=== PATIENT | female | born 1950 | race Caucasian/White ===

== ENCOUNTER 2021-03-28 14:40 | Inpatient (IN) | payer MEDICARE, MEDICAID ==
[~2021-03-28] VITALS: Ht 165.1 cm; Wt 81.1 kg
[2021-03-28 18:00] VITALS: BP 169/71
--- NOTE | 2021-03-28 18:30 | NUR ---
Patient in room PCU 3016. I have received report from Shawanda MUNOZ and had the opportunity to ask questions and assume patient care.
[2021-03-28] MEDS ORDERED: mag hydrox/Alum hydrox/simeth 30ml oral suspension PO PRN (20:00)
[2021-03-28] MEDS ORDERED: levoFLOXACIN-Levaquin 750MG/D5 150 ML IV ONE (20:00)
[2021-03-28] MEDS ORDERED: diphenhydrAMINE 50 mg/ml inj IV PRN (20:00)
[2021-03-28] MEDS ORDERED: acetaminophen 325mg tablet PO PRN ×2 (20:00)
[2021-03-28] MEDS ORDERED: acetaminophen 650mg rectal suppository RC PRN (20:00)
[2021-03-28] MEDS ORDERED: diphenhydrAMINE 25mg capsule PO PRN (20:00)
[2021-03-28] MEDS ORDERED: ondansetron 4mg rapidly disintigrating tab PO PRN (20:00)
[2021-03-28] MEDS: normal saline 1000ml 1,000 ML IV SCH (20:00)
[2021-03-28] MEDS ORDERED: morphine 2 MG/ML inj. syringe IV PRN ×2 (20:00)
[2021-03-28] MEDS ORDERED: bisacodyl 10mg suppository rectal RC PRN (20:00)
[2021-03-28] MEDS ORDERED: magnesium hydroxide 30ml (MOM) UD suspension PO PRN (20:00)
[2021-03-28] MEDS ORDERED: HYDROcodone/acetaminophen 5mg/325mg tablet PO PRN (20:00)
[2021-03-28] MEDS ORDERED: labetalol 20mg/4ml (5mg/ml) syringe IV PRN (20:05)
[2021-03-28 20:55] LABS: PARTIAL THROMBOPLASTIN TIME 26 SECONDS (22-32)
--- NOTE | 2021-03-28 21:00 | NUR ---
Troponin at 3917. I called and informed Dr. Bey. He prescribed aspirin 325mg 1 tab once and aspirin 81 mg once daily with initial dose at 0800 03/29/21.
[2021-03-28 21:06] LABS: CREATINE KINASE 64 U/L (26-192); MAGNESIUM 2.8 MG/DL (1.5-2.4); PHOSPHORUS 5.6 MG/DL (2.3-4.5)
[2021-03-28] MEDS ORDERED: HYDR-4070 PO (21:08)
[2021-03-28] MEDS ORDERED: FURO80TA3 PO (21:14)
[2021-03-28] MEDS ORDERED: TRAZ-251 PO (21:14)
[2021-03-28] MEDS ORDERED: CLON0.1T2 PO (21:14)
[2021-03-28] MEDS ORDERED: LACT10SO3 PO (21:14)
[2021-03-28] MEDS ORDERED: ONDA-103 PO (21:14)
[2021-03-28] MEDS ORDERED: SERT-434 PO (21:14)
[2021-03-28] MEDS ORDERED: AMLO2.5T5 PO (21:14)
[2021-03-28] MEDS ORDERED: METO-411 PO (21:14)
[2021-03-28] MEDS ORDERED: LISI20TA28 PO (21:14)
[2021-03-28] MEDS ORDERED: ATOR20TA66 PO (21:14)
[2021-03-28 21:25] LABS: BASOPHILS % (AUTO) 0.4 % (0-1); EOSINOPHILS # (AUTO) 0.1 X10'3 (0-0.9); EOSINOPHILS % (AUTO) 1.4 % (0-6); HEMATOCRIT 35.6 % (35.0-45.0); HEMOGLOBIN 11.5 g/dl (12.0-16.0); LYMPHOCYTES % (AUTO) 11.3 % (21-51); MEAN CORPUSCULAR HEMOGLOBIN 31.3 PG (27.0-31.0); MEAN CORPUSCULAR HGB CONC 32.4 g/dL (33.0-36.5); MEAN CORPUSCULAR VOLUME 96.8 FL (78-98); MEAN PLATELET VOLUME 7.5 FL (7.4-10.4); MONOCYTES # (AUTO) 0.7 X10'3 (0-0.9); MONOCYTES % (AUTO) 7.7 % (2-12); NEUTROPHILS # (AUTO) 7.3 X10'3 (1.8-7.7); NEUTROPHILS % (AUTO) 79.2 % (42-75); PLATELET COUNT 474 X10'3 (140-440); RED BLOOD COUNT 3.68 X10'6 (4.20-5.60); RED CELL DISTRIBUTION WIDTH 17.4 % (11.5-14.5); WHITE BLOOD COUNT 9.3 X10'3 (4.5-11.0)
[2021-03-28] MEDS ORDERED: aspirin 325mg tablet PO ONE (21:45)
[2021-03-28 22:00] VITALS: BP 165/85
[2021-03-28] MEDS ORDERED: non-formulary drug (Ondansetron HCl 1 TAB) PO PRN (22:05)
[2021-03-28] MEDS ORDERED: lactulose 20gm/30ml cup PO PRN (22:05)
[2021-03-28] MEDS: HYDROcodone/acetaminophen 10/325mg tab PO PRN (22:24)
[2021-03-28] MEDS: docusate sod 100mg capsule PO SCH (22:29)
[2021-03-28] MEDS: ondansetron/PF 4mg/2ml inj IV PRN (22:33)
[2021-03-28] MEDS: heparin, porcine 5000 units/ml vial SQ SCH (22:33)
[2021-03-29 02:00] VITALS: BP 171/84
[2021-03-29] MEDS: HYDROcodone/acetaminophen 10/325mg tab PO PRN (05:47)
[2021-03-29] MEDS: normal saline 1000ml 1,000 ML IV SCH ×2 (06:00→16:00)
--- NOTE | 2021-03-29 06:41 | NUR ---
Patient in room PCU 3016. I have received report from Darcy MUNOZ and had the opportunity to ask questions and assume patient care.
[2021-03-29 06:42] LABS: BASOPHILS % (AUTO) 0.5 % (0-1); EOSINOPHILS # (AUTO) 0.2 X10'3 (0-0.9); EOSINOPHILS % (AUTO) 2.9 % (0-6); HEMATOCRIT 38.7 % (35.0-45.0); HEMOGLOBIN 12.3 g/dl (12.0-16.0); LYMPHOCYTES # (AUTO) 0.6 X10'3 (1.1-4.8); LYMPHOCYTES % (AUTO) 7.6 % (21-51); MEAN CORPUSCULAR HEMOGLOBIN 30.9 PG (27.0-31.0); MEAN CORPUSCULAR HGB CONC 31.7 g/dL (33.0-36.5); MEAN CORPUSCULAR VOLUME 97.5 FL (78-98); MEAN PLATELET VOLUME 7.5 FL (7.4-10.4); MONOCYTES # (AUTO) 0.6 X10'3 (0-0.9); MONOCYTES % (AUTO) 7.5 % (2-12); NEUTROPHILS # (AUTO) 6.2 X10'3 (1.8-7.7); NEUTROPHILS % (AUTO) 81.5 % (42-75); PLATELET COUNT 444 X10'3 (140-440); RED BLOOD COUNT 3.97 X10'6 (4.20-5.60); RED CELL DISTRIBUTION WIDTH 17.6 % (11.5-14.5); WHITE BLOOD COUNT 7.6 X10'3 (4.5-11.0)
--- NOTE | 2021-03-29 06:42 | NUR ---
Problems reprioritized. Patient report given, questions answered & plan of care reviewed with Brissa MUNOZ.
[2021-03-29 06:52] LABS: ALBUMIN 2.9 G/DL (3.4-5.0); ALBUMIN/GLOBULIN RATIO 0.8 (1.1-1.5); ALKALINE PHOSPHATASE 88 IU/L (46-116); ANION GAP 14 (8-16); ASPARTATE AMINO TRANSFERASE 27 U/L (10-37); BILIRUBIN,TOTAL 0.4 MG/DL (0.1-1.0); BLOOD UREA NITROGEN 54 MG/DL (7-18); BUN/CREATININE RATIO 9.9 (6.6-38.0); CALCIUM 8.2 MG/DL (8.5-10.1); CHLORIDE 98 MMOL/L (99-107); CREATININE 5.45 MG/DL (0.40-0.90); GLUCOSE 79 MG/DL (70-104); POTASSIUM 4.5 MMOL/L (3.5-5.1); SODIUM 138 MMOL/L (135-145); TOTAL PROTEIN 6.7 G/DL (6.4-8.2); eGFR 8 ML/MIN
[2021-03-29 06:57] LABS: ALANINE AMINOTRANSFERASE < 6 U/L (12-78)
--- NOTE | 2021-03-29 07:04 | NUR ---
Critical results Trop 3359 down from 3917. Notified Charge nurse Donnie, expected findings.
[2021-03-29 07:32] VITALS: BP 193/92
[2021-03-29] MEDS: metoprolol succinate 25mg (24-HOUR) SR. Tablet PO SCH (07:43)
[2021-03-29] MEDS: pantoprazole 40 MG vial IV SCH (07:43)
[2021-03-29] MEDS: sertraline 50mg tablet PO SCH (07:44)
[2021-03-29] MEDS: amLODIPine 2.5mg tablet PO SCH (07:44)
[2021-03-29] MEDS: cloNIDine 0.1 mg tablet PO SCH ×2 (07:44→19:25)
[2021-03-29] MEDS: aspirin 81mg tab.chew PO SCH (07:44)
[2021-03-29] MEDS: atorvastatin 20mg tablet PO SCH (07:45)
[2021-03-29] MEDS: docusate sod 100mg capsule PO SCH ×2 (07:45→19:25)
[2021-03-29] MEDS: lisinopril 20mg tablet PO SCH ×2 (07:45→19:25)
[2021-03-29] MEDS: heparin, porcine 5000 units/ml vial SQ SCH ×2 (07:46→19:26)
[2021-03-29] MEDS: HYDROmorphone inj. 0.5 MG/0.5 ML DISP.SYRIN IV PRN ×3 (07:58→21:43)
[2021-03-29] MEDS ORDERED: zolpidem 5mg tablet PO PRN (09:40)
[2021-03-29] MEDS ORDERED: LORazepam 0.5 MG tablet PO PRN (09:40)
[2021-03-29] MEDS: ondansetron/PF 4mg/2ml inj IV PRN ×2 (10:17→17:02)
--- NOTE | 2021-03-29 11:46 | NUR ---
PAGER ID: [phone] MESSAGE: [id number] Did you see that her report is back on the KUB? I think NG needs to be advanced... ? Brissa [phone]
--- NOTE | 2021-03-29 11:55 | NUR ---
Problems reprioritized. Patient report given, questions answered & plan of care reviewed with Brissa MUNOZ.
--- NOTE | 2021-03-29 13:29 | NUR ---
Advanced NG per verbal order from Dr. Verduzco. Resistance was felt but was able to advance. Patient tolerated well but had pain, stopped advancement when patient asked. Out put was increased.
[2021-03-29 13:31] VITALS: BP 188/98
[2021-03-29] MEDS ORDERED: normal saline 1000ml 250 ML IV PRN (14:05)
[2021-03-29] MEDS ORDERED: heparin 1,000unit/ml 10ml vial 10 ML IV ONE (14:05)
[2021-03-29] MEDS ORDERED: heparin 1,000 units/ml 10ml inj HE ONE ×2 (14:10)
[2021-03-29 15:41] VITALS: BP 202/103
--- NOTE | 2021-03-29 15:47 | NUR ---
PAGER ID: [phone] MESSAGE: [id number] Black Pringle BP currently is 202/103, HR 82, she has labetalol 20mg prn. Q15 min. Brissa [phone]
--- NOTE | 2021-03-29 15:52 | NUR ---
Updated patients SBAR, permission received to be able to talk to son Silvino Coleman concerning patients medical information.
--- NOTE | 2021-03-29 16:29 | NUR ---
Dialysis nurse in to HD patient, requesting hydralizine not be given, nurse states that she will bring BP down with HD.
[2021-03-29 18:00] VITALS: BP 175/110
--- NOTE | 2021-03-29 18:17 | NUR ---
Problems reprioritized. Patient report given, questions answered & plan of care reviewed with Darcy MUNOZ.
--- NOTE | 2021-03-29 18:30 | NUR ---
Patient in room PCU 3016. I have received report from Brissa MUNOZ and had the opportunity to ask questions and assume patient care.
[2021-03-29] MEDS: hydrALAZINE 20mg/ml inj. IV PRN (19:26)
[2021-03-29] MEDS ORDERED: traZODone 50mg tablet PO SCH (21:00)
[2021-03-29 22:00] VITALS: BP 170/99
[2021-03-30] VITALS (21 sets, daily range): BP systolic 122–179; BP diastolic 62–103
[2021-03-30] MEDS: normal saline 1000ml 1,000 ML IV SCH ×2 (02:00→10:59)
[2021-03-30] MEDS: HYDROmorphone inj. 0.5 MG/0.5 ML DISP.SYRIN IV PRN (03:22)
--- NOTE | 2021-03-30 06:00 | NUR ---
Patient in room PCU 3016. I have received report from ALEXANDER Crouch and had the opportunity to ask questions and assume patient care.
--- NOTE | 2021-03-30 06:30 | NUR ---
Patient in room PCU 3016. I have received report from Darcy Patino RN and had the opportunity to ask questions and assume patient care. Pt sitting in bed, semi fowlers, with HOB at 45 degrees per preference. NG hooked up to low intermediate suction: 700 ML brown secretions present in suction container. container changed. pt verbal and in agreement with daily goal to have BM. Per pt, nothing works but enemas. Safety education completed. safety measures in place. Per Darcy Schaefer, Blood cultures called in to her at 0540 and she is notifying Dr. Johnson NOC shift hospitalist. no s/sx acute distress at this time. VS stable.
--- NOTE | 2021-03-30 06:34 | NUR ---
Pt.'s blood culture resulted to gram negative rods. I called and informed Dr. Bey and he prescribed Levaquin 250mg q48H.
--- NOTE | 2021-03-30 06:36 | NUR ---
Problems reprioritized. Patient report given, questions answered & plan of care reviewed with Willa MUNOZ.
[2021-03-30] MEDS: pantoprazole 40 MG vial IV SCH (07:29)
[2021-03-30] MEDS: cloNIDine 0.1 mg tablet PO SCH (07:51)
[2021-03-30] MEDS: atorvastatin 20mg tablet PO SCH ×2 (07:51→08:00)
[2021-03-30] MEDS: hydrALAZINE 25 MG tablet PO SCH ×2 (07:51→08:00)
[2021-03-30] MEDS: docusate sod 100mg capsule PO SCH ×2 (07:51→08:00)
[2021-03-30] MEDS: amLODIPine 2.5mg tablet PO SCH ×2 (07:52→08:00)
[2021-03-30] MEDS: metoprolol succinate 25mg (24-HOUR) SR. Tablet PO SCH ×2 (07:52→08:00)
[2021-03-30] MEDS: lisinopril 20mg tablet PO SCH (07:53)
[2021-03-30] MEDS: sertraline 50mg tablet PO SCH ×2 (07:54→08:00)
[2021-03-30] MEDS: heparin, porcine 5000 units/ml vial SQ SCH ×2 (07:56→20:00)
[2021-03-30] MEDS: HYDROcodone/acetaminophen 10/325mg tab PO PRN (07:59)
[2021-03-30] MEDS ORDERED: levoFLOXACIN-Levaquin 250mg/D5 50 ML IV SCH (08:00)
[2021-03-30 08:04] LABS: BASOPHILS % (AUTO) 0.4 % (0-1); EOSINOPHILS % (AUTO) 0.2 % (0-6); HEMATOCRIT 38.9 % (35.0-45.0); HEMOGLOBIN 12.2 g/dl (12.0-16.0); LYMPHOCYTES # (AUTO) 0.5 X10'3 (1.1-4.8); LYMPHOCYTES % (AUTO) 4.5 % (21-51); MEAN CORPUSCULAR HEMOGLOBIN 30.6 PG (27.0-31.0); MEAN CORPUSCULAR HGB CONC 31.4 g/dL (33.0-36.5); MEAN CORPUSCULAR VOLUME 97.4 FL (78-98); MEAN PLATELET VOLUME 7.3 FL (7.4-10.4); MONOCYTES # (AUTO) 0.8 X10'3 (0-0.9); MONOCYTES % (AUTO) 7.7 % (2-12); NEUTROPHILS # (AUTO) 9.3 X10'3 (1.8-7.7); NEUTROPHILS % (AUTO) 87.2 % (42-75); PLATELET COUNT 481 X10'3 (140-440); RED BLOOD COUNT 3.99 X10'6 (4.20-5.60); RED CELL DISTRIBUTION WIDTH 17.2 % (11.5-14.5); WHITE BLOOD COUNT 10.7 X10'3 (4.5-11.0)
[2021-03-30] MEDS: aspirin 81mg tab.chew PO SCH (08:30)
--- NOTE | 2021-03-30 09:07 | NUR ---
Student Medication Administration: For this medication-pass time frame, all medication were reviewed, dispensed, administered and documented per hospital policy by Shilpa nursing coordinator.
--- NOTE | 2021-03-30 09:12 | NUR ---
Student documentation: I have reviewed and agree with all interventions, assessments performed and documented by Shilpa, acute care nursing assistant.
[2021-03-30 09:16] LABS: ALANINE AMINOTRANSFERASE < 6 U/L (12-78); ALBUMIN 2.6 G/DL (3.4-5.0); ALBUMIN/GLOBULIN RATIO 0.7 (1.1-1.5); ALKALINE PHOSPHATASE 97 IU/L (46-116); ANION GAP 19 (8-16); ASPARTATE AMINO TRANSFERASE 25 U/L (10-37); BILIRUBIN,TOTAL 0.6 MG/DL (0.1-1.0); BLOOD UREA NITROGEN 38 MG/DL (7-18); BUN/CREATININE RATIO 10.7 (6.6-38.0); CALCIUM 8.2 MG/DL (8.5-10.1); CHLORIDE 99 MMOL/L (99-107); CREATININE 3.56 MG/DL (0.40-0.90); GLUCOSE 71 MG/DL (70-104); POTASSIUM 4.7 MMOL/L (3.5-5.1); SODIUM 141 MMOL/L (135-145); TOTAL CARBON DIOXIDE 23.1 MMOL/L (24-32); TOTAL PROTEIN 6.2 G/DL (6.4-8.2); eGFR 13 ML/MIN
[2021-03-30] MEDS ORDERED: famotidine/PF 10 mg/ml inj IV ONE (10:35)
[2021-03-30] MEDS: LORazepam 2 mg/ml vial IV PRN (10:50)
[2021-03-30] MEDS: labetalol 20mg/4ml (5mg/ml) syringe IV PRN (10:50)
[2021-03-30 12:13] LABS: PRE OP PARTIAL THROMB. TIME 32 SECONDS (22-32)
--- NOTE | 2021-03-30 13:06 | NUR ---
Problems reprioritized. Patient report given, questions answered & plan of care reviewed with ALEXANDER Odonnell.
--- NOTE | 2021-03-30 13:18 | NUR ---
Pt to surgery. Report called to Paradise in recovery. notified Paradise of completed checklist prior to surgery. communicated that blood sugar just checked: 65. Per Paradise she will communicate with anesthesia and tx blood sugar. pt left alert and oriented, without SOB or acute distress.
[2021-03-30] MEDS ORDERED: LIDOcaine 1% 30ml preserv. free vial ONE (13:21)
[2021-03-30] MEDS ORDERED: BUPIVAcaine/PF 2.5mg/ml (0.25%) 10ml vial ONE (13:21)
[2021-03-30] MEDS ORDERED: BUPIVACAINE liposomal/PF 13.3 MG/ML vial IM ONE ×2 (13:21→15:06)
[2021-03-30] MEDS ORDERED: BUPIVAcaine/PF 2.5 mg/ml (0.25%) 30ml vial ONE (13:21)
[2021-03-30] MEDS ORDERED: dexmedetomidine 200mcg/2ml inj. IV ONE (13:40)
[2021-03-30] MEDS ORDERED: enalaprilat dihydrate 2.5mg/2ml vial IV ONE (13:40)
[2021-03-30] MEDS ORDERED: dexamethasone sod phosphate 10mg/ml inj ONE (13:40)
[2021-03-30] MEDS ORDERED: sevoflurane 250ml liquid IH ONE (13:40)
[2021-03-30] MEDS ORDERED: midazolam 1 mg/ML 2ml injection ONE (13:41)
[2021-03-30] MEDS ORDERED: fentaNYL/PF 50MCG/1 ML 2ML syringe ONE ×2 (13:41→14:34)
[2021-03-30] MEDS ORDERED: rocuronium 10mg/ml inj IV ONE (13:42)
[2021-03-30] MEDS ORDERED: etomidate 2mg/ml inj. ONE (13:42)
[2021-03-30] MEDS ORDERED: ondansetron/PF 4mg/2ml inj ONE (14:04)
[2021-03-30] MEDS ORDERED: albumin (Human) 5% 250ml 250 ML IV ONE ×2 (14:05)
[2021-03-30] MEDS ORDERED: dextrose 50%-water 50ml dispensing syringe IV ONE (14:13)
[2021-03-30] MEDS ORDERED: hydrALAZINE 20mg/ml inj. IV ONE (14:18)
[2021-03-30] MEDS ORDERED: enalaprilat dihydrate 2.5mg/2ml vial IV PRN (14:40)
[2021-03-30] MEDS ORDERED: morphine 2 MG/ML inj. syringe IV PRN (14:40)
[2021-03-30] MEDS ORDERED: hydrALAZINE 20mg/ml inj. IV PRN (14:40)
[2021-03-30] MEDS ORDERED: fentaNYL/PF 50MCG/1 ML 2ML syringe IV PRN ×2 (14:40)
[2021-03-30] MEDS ORDERED: ondansetron/PF 4mg/2ml inj IV PRN (14:40)
[2021-03-30] MEDS ORDERED: ringers solution, lacted 1,000 ML IV SCH (14:40)
[2021-03-30] MEDS ORDERED: morphine 4 MG/ML inj SYRINge IV PRN (14:40)
[2021-03-30] MEDS ORDERED: sugammadex 200mg/2ml injection IV ONE (15:03)
--- NOTE | 2021-03-30 15:35 | NUR ---
Paged Dr. Verduzco to ask for laboratory cureman order for when pt returns to floor from surgery.
--- NOTE | 2021-03-30 15:40 | NUR ---
ADMITTED TO PACU FROM OR ACCOMPANIED BY ANESTHESIA. INTIAL PHYSICAL ASSESSMENT DONE AND RECORDED. REPORT RECEIVED FROM ANESTHESIA.
[2021-03-30] MEDS ORDERED: CADD PCA waste documentation MC PRN (15:45)
[2021-03-30] MEDS ORDERED: naloxone 0.4 mg/ml inj IV PRN (15:45)
--- NOTE | 2021-03-30 16:58 | NUR ---
Received report from Paradise MUNOZ in recovery. 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 Spoke with Dr. Verduzco; new order to change fluids to d5NS, and per Dr. Verduzco, Dr. Bergman will be addressing the findings of exploratory surgery.
--- NOTE | 2021-03-30 17:30 | NUR ---
PACU DISCHARGE CRITERIA MET, REPORT GIVEN TO FLOOR. DENIES PAIN OR DISCOMFORT. PT IS STABLE AND ADEQUATELY RECOVERED FROM ANESTHESIA. PT HAS STABLE AIRWAY PATENCY, RESPIRATORY FUNCTION TO INCLUDE RESPIRATORY RATE AND O2 SAT. HEART RATE, BLOOD PRESSURE STABLE AND HYDRATION ADEQUATE. MENTAL STATUS IS APPROPRIATE. PAIN AND NAUSEA CONTROLLED. REFER TO PACU SPREADSHEET FOR VITAL SIGNS.
--- NOTE | 2021-03-30 17:31 | NUR ---
pt arrived back from surgery. pt very lethargic, VS stable. hooked up to continuous pulse ox, telemetry initiated. pt alert to light touch but snores off and on otherwise. CADD dilauded pump not started by surgical nurse due to pt not yet completely alert from anesthesia. pt reports nausea when roused. Zofran prn for nausea administered.
[2021-03-30] MEDS: dextrose 5%-normal saline 1,000 ML IV SCH (17:33)
[2021-03-30] MEDS: ondansetron/PF 4mg/2ml inj IV PRN (17:36)
--- NOTE | 2021-03-30 18:30 | NUR ---
Patient in room PCU 3016. I have received report from Willa MUNOZ and had the opportunity to ask questions and assume patient care.
[2021-03-30] MEDS: HYDROmorph./NS 0.2 mg/ml CADD 100 ML IV SCH ×3 (19:00→23:00)
--- NOTE | 2021-03-30 19:00 | NUR ---
pt's Dilaudid CADD pump scheduled at 1900 wasn't administered due to pt not yet completely alert and oriented status post exploratory laparatomy.
[2021-03-31] MEDS: HYDROmorph./NS 0.2 mg/ml CADD 100 ML IV SCH ×12 (01:00→23:00)
[2021-03-31 01:15] VITALS: BP 123/64
[2021-03-31] MEDS: dextrose 5%-normal saline 1,000 ML IV SCH ×3 (03:54→23:05)
[2021-03-31 05:15] VITALS: BP 160/75
--- NOTE | 2021-03-31 06:30 | NUR ---
Patient in room PCU 3016. I have received report from Darcy Schaefer RN and had the opportunity to ask questions and assume patient care. Pt semi fowlers in bed, alert to voice, endorses mild pain. safety education completed. safety measures in place. no s/sx acute distress.
[2021-03-31 08:55] LABS: BASOPHILS % (AUTO) 0.1 % (0-1); EOSINOPHILS % (AUTO) 0.1 % (0-6); HEMOGLOBIN 10.3 g/dl (12.0-16.0); LYMPHOCYTES # (AUTO) 0.3 X10'3 (1.1-4.8); LYMPHOCYTES % (AUTO) 2.6 % (21-51); MEAN CORPUSCULAR HEMOGLOBIN 31.2 PG (27.0-31.0); MEAN CORPUSCULAR HGB CONC 32.2 g/dL (33.0-36.5); MEAN CORPUSCULAR VOLUME 96.9 FL (78-98); MEAN PLATELET VOLUME 7.4 FL (7.4-10.4); MONOCYTES # (AUTO) 0.6 X10'3 (0-0.9); MONOCYTES % (AUTO) 5.4 % (2-12); NEUTROPHILS # (AUTO) 9.9 X10'3 (1.8-7.7); NEUTROPHILS % (AUTO) 91.8 % (42-75); PLATELET COUNT 399 X10'3 (140-440); RED CELL DISTRIBUTION WIDTH 16.9 % (11.5-14.5); WHITE BLOOD COUNT 10.7 X10'3 (4.5-11.0)
[2021-03-31] MEDS ORDERED: heparin 1,000unit/ml 10ml vial 10 ML IV ONE (09:00)
[2021-03-31] MEDS ORDERED: normal saline 1000ml 250 ML IV PRN (09:00)
[2021-03-31] MEDS ORDERED: EPOETIN ALFA-EPBX 20,000 UNIT/ML 1 ML MDV IV ONE (09:00)
[2021-03-31] MEDS ORDERED: heparin 1,000 units/ml 10ml inj HE ONE ×2 (09:05)
[2021-03-31 09:10] LABS: ALBUMIN 2.3 G/DL (3.4-5.0); ANION GAP 14 (8-16); BILIRUBIN,TOTAL 0.4 MG/DL (0.1-1.0); BLOOD UREA NITROGEN 46 MG/DL (7-18); BUN/CREATININE RATIO 12.4 (6.6-38.0); CALCIUM 7.9 MG/DL (8.5-10.1); CHLORIDE 106 MMOL/L (99-107); GLUCOSE 109 MG/DL (70-104); POTASSIUM 3.4 MMOL/L (3.5-5.1); SODIUM 139 MMOL/L (135-145); TOTAL CARBON DIOXIDE 18.9 MMOL/L (24-32); eGFR 12 ML/MIN
[2021-03-31 09:11] LABS: ALBUMIN/GLOBULIN RATIO 0.9 (1.1-1.5); ALKALINE PHOSPHATASE 68 IU/L (46-116); ASPARTATE AMINO TRANSFERASE 37 U/L (10-37)
[2021-03-31 09:16] LABS: ALANINE AMINOTRANSFERASE < 6 U/L (12-78)
[2021-03-31] MEDS: hydrALAZINE 20mg/ml inj. IV PRN ×2 (09:23→23:41)
[2021-03-31] MEDS: heparin, porcine 5000 units/ml vial SQ SCH ×2 (09:24→20:17)
[2021-03-31] MEDS: pantoprazole 40 MG vial IV SCH (09:24)
[2021-03-31 10:32] LABS: ANISOCYTOSIS 1+; LARGE PLATELETS FEW; PLATELET ESTIMATE NORMAL; TOTAL CELLS COUNTED 100
[2021-03-31 10:33] LABS: ELLIPTOCYTES 1+; POIKILOCYTOSIS 1+; POLYCHROMASIA FEW
[2021-03-31 10:34] LABS: BURR CELLS 1+
[2021-03-31 11:00] VITALS: BP 143/74
[2021-03-31 11:13] LABS: HBSAG SCREEN Negative (Negative)
[2021-03-31 15:00] VITALS: BP 188/90
--- NOTE | 2021-03-31 15:00 | NUR ---
Pt pulled out IV. Pt refusing to allow new IV placement. unable to administer prn BP meds.
--- NOTE | 2021-03-31 16:00 | NUR ---
Frankel Cath d/c'd at 1600. tip intact.
[2021-03-31 18:00] VITALS: BP 184/82
--- NOTE | 2021-03-31 18:30 | NUR ---
Problems reprioritized. Patient report given, questions answered & plan of care reviewed with Souleymane RN and Janeen RN. Pt sitting up in chair at bedside, upset due to recent talk with Dr. Bergman. therapeutic conversation employed. discussed IV placement needed. Charge Nurse was not able to locate vein.
--- NOTE | 2021-03-31 18:38 | NUR ---
Patient in room PCU 3016. I have received report from ALEXANDER Crouch and had the opportunity to ask questions and assume patient care.
--- NOTE | 2021-03-31 18:39 | NUR ---
Patient in room PCU 3016. I have received report from ALEXANDER Crouch and had the opportunity to ask questions and assume patient care.
[2021-03-31] MEDS: ondansetron/PF 4mg/2ml inj IV PRN (21:28)
[2021-03-31 22:00] VITALS: BP 198/61
--- NOTE | 2021-03-31 23:28 | NUR ---
I replaced CADD battery and accidently deleted the amount of times patient has attempted to use her button and the amount she of times she has received a dose. Prior to replacing battery the CADD settings checks were done.
[2021-04-01] VITALS (7 sets, daily range): BP systolic 165–202; BP diastolic 51–100
[2021-04-01] MEDS: HYDROmorph./NS 0.2 mg/ml CADD 100 ML IV SCH ×12 (01:00→23:00)
--- NOTE | 2021-04-01 03:00 | NUR ---
Cadd assessment fixed. I added current 0300, given and attempts to last check prior to clearing this setting (09/19). eMaR should be correct
[2021-04-01] MEDS: dextrose 5%-normal saline 1,000 ML IV SCH ×2 (05:55→19:05)
--- NOTE | 2021-04-01 06:30 | NUR ---
Patient in room PCU 3016. I have received report from Souleymane MUNOZ and Janeen MUNOZ and had the opportunity to ask questions and assume patient care.
--- NOTE | 2021-04-01 06:37 | NUR ---
Problems reprioritized. Patient report given, questions answered & plan of care reviewed with ALEXANDER Crouch I agree with ALEXANDER Vernonmaintenance custodian, assessments, and charting .
--- NOTE | 2021-04-01 06:37 | NUR ---
Problems reprioritized. Patient report given, questions answered & plan of care reviewed with ALEXANDER Crouch.
[2021-04-01] MEDS: LORazepam 2 mg/ml vial IV PRN ×2 (07:56→14:13)
[2021-04-01] MEDS: labetalol 20mg/4ml (5mg/ml) syringe IV PRN ×2 (07:56→22:53)
[2021-04-01] MEDS: pantoprazole 40 MG vial IV SCH (07:56)
[2021-04-01] MEDS: heparin, porcine 5000 units/ml vial SQ SCH ×2 (07:57→20:19)
[2021-04-01 09:06] LABS: BASOPHILS % (AUTO) 0.2 % (0-1); EOSINOPHILS # (AUTO) 0.1 X10'3 (0-0.9); EOSINOPHILS % (AUTO) 1.3 % (0-6); HEMATOCRIT 30.6 % (35.0-45.0); HEMOGLOBIN 9.8 g/dl (12.0-16.0); LYMPHOCYTES # (AUTO) 0.4 X10'3 (1.1-4.8); LYMPHOCYTES % (AUTO) 3.5 % (21-51); MEAN CORPUSCULAR HEMOGLOBIN 30.9 PG (27.0-31.0); MEAN CORPUSCULAR VOLUME 96.5 FL (78-98); MEAN PLATELET VOLUME 7.2 FL (7.4-10.4); MONOCYTES # (AUTO) 0.6 X10'3 (0-0.9); MONOCYTES % (AUTO) 5.7 % (2-12); NEUTROPHILS # (AUTO) 9.5 X10'3 (1.8-7.7); NEUTROPHILS % (AUTO) 89.3 % (42-75); PLATELET COUNT 359 X10'3 (140-440); RED BLOOD COUNT 3.18 X10'6 (4.20-5.60); RED CELL DISTRIBUTION WIDTH 16.6 % (11.5-14.5); WHITE BLOOD COUNT 10.7 X10'3 (4.5-11.0)
[2021-04-01 09:18] LABS: ALANINE AMINOTRANSFERASE 7 U/L (12-78); ALBUMIN 2.4 G/DL (3.4-5.0); ALBUMIN/GLOBULIN RATIO 0.8 (1.1-1.5); ALKALINE PHOSPHATASE 94 IU/L (46-116); ANION GAP 9 (8-16); BILIRUBIN,TOTAL 0.5 MG/DL (0.1-1.0); BLOOD UREA NITROGEN 26 MG/DL (7-18); BUN/CREATININE RATIO 9.2 (6.6-38.0); CALCIUM 8.1 MG/DL (8.5-10.1); CHLORIDE 105 MMOL/L (99-107); CREATININE 2.84 MG/DL (0.40-0.90); GLUCOSE 131 MG/DL (70-104); SODIUM 142 MMOL/L (135-145); TOTAL CARBON DIOXIDE 27.8 MMOL/L (24-32); TOTAL PROTEIN 5.4 G/DL (6.4-8.2); eGFR 17 ML/MIN
[2021-04-01 09:20] LABS: ASPARTATE AMINO TRANSFERASE 24 U/L (10-37)
[2021-04-01 09:25] LABS: POTASSIUM 2.9 MMOL/L (3.5-5.1)
[2021-04-01] MEDS ORDERED: magnesium Cl slow-release 64mg tablet PO PRN (09:35)
[2021-04-01] MEDS ORDERED: potassium Cl 40MEQ/1/2NS 520ml 520 ML IV PRN (09:35)
[2021-04-01] MEDS ORDERED: potassium Cl 20 mEq SR tablet PO PRN (09:35)
[2021-04-01] MEDS ORDERED: magnesium 4gm in 100ml NS 100 ML IV PRN (09:35)
[2021-04-01] MEDS ORDERED: levoFLOXACIN-Levaquin 500mg/D5 100 ML IV SCH (11:05)
--- NOTE | 2021-04-01 16:20 | NUR ---
Pt's IV leaking and no longer patent. pt refusing nurse even assess arms for new IV. "I'm not getting another one.!" despite pt education.
--- NOTE | 2021-04-01 16:22 | NUR ---
Dr. Verduzco notified pt refusing IV "PAGER ID: [phone] MESSAGE: RE: BlackJeannie: [id number]: Pt pulled out IV. refusing to allow a new one to be placed. -Willa #[phone]"
--- NOTE | 2021-04-01 17:45 | NUR ---
Small Flatus present. pt sat to the side and released small flatus. pt is no void though, bladder scanned and 271ml present. pt without desire to void and pt oliguric at baseline. Dr Bergman to see pt and removed NG tube and place pt on CLD. pt grateful
--- NOTE | 2021-04-01 18:47 | NUR ---
Patient in room PCU 3016. I have received report from Willa MUNOZ and had the opportunity to ask questions and assume patient care.
--- NOTE | 2021-04-01 18:52 | NUR ---
Problems reprioritized. Patient report given, questions answered & plan of care reviewed with Christy RN and Saba RN. Pt alert, supine in bed eating clear liquid diet, trying to pass evgeny. passed on that pt IV infiltrated and pt refusing new IV at this time.
--- NOTE | 2021-04-01 19:41 | NUR ---
Patient in room PCU 3016. I have received report from VIELKA MUNOZ and had the opportunity to ask questions and assume patient care.
[2021-04-01] MEDS: hydrALAZINE 25 MG tablet PO SCH (20:20)
[2021-04-01] MEDS: potassium Cl 20 mEq SR tablet PO PRN (20:20)
[2021-04-01] MEDS: K and/or MAG REPLACEMENT MC SCH (20:31)
--- NOTE | 2021-04-01 23:30 | NUR ---
Patient was given labetolol BP was 178/98 HR 79. Medication given by Viv MUNOZ ACLS cert.
[2021-04-02] VITALS (8 sets, daily range): BP systolic 162–203; BP diastolic 67–112
[2021-04-02] MEDS: potassium Cl 20 mEq SR tablet PO PRN (00:21)
[2021-04-02] MEDS: HYDROmorph./NS 0.2 mg/ml CADD 100 ML IV SCH ×6 (01:00→11:00)
[2021-04-02] MEDS: dextrose 5%-normal saline 1,000 ML IV SCH (01:58)
--- NOTE | 2021-04-02 06:00 | NUR ---
Patient in room PCU 3016. I have received report from ALEXANDER Harrison and ALEXANDER Walter and had the opportunity to ask questions and assume patient care.
--- NOTE | 2021-04-02 06:15 | NUR ---
Problems reprioritized. Patient report given, questions answered & plan of care reviewed with Jeannie MUNOZ.
[2021-04-02 07:04] LABS: BASOPHILS # (AUTO) 0.1 X10'3 (0-0.2); BASOPHILS % (AUTO) 0.5 % (0-1); EOSINOPHILS # (AUTO) 0.4 X10'3 (0-0.9); EOSINOPHILS % (AUTO) 3.6 % (0-6); HEMATOCRIT 31.1 % (35.0-45.0); HEMOGLOBIN 9.7 g/dl (12.0-16.0); LYMPHOCYTES # (AUTO) 0.6 X10'3 (1.1-4.8); LYMPHOCYTES % (AUTO) 4.9 % (21-51); MEAN CORPUSCULAR HEMOGLOBIN 30.6 PG (27.0-31.0); MEAN CORPUSCULAR HGB CONC 31.3 g/dL (33.0-36.5); MEAN CORPUSCULAR VOLUME 97.8 FL (78-98); MEAN PLATELET VOLUME 7.5 FL (7.4-10.4); MONOCYTES # (AUTO) 0.8 X10'3 (0-0.9); MONOCYTES % (AUTO) 6.3 % (2-12); NEUTROPHILS # (AUTO) 10.3 X10'3 (1.8-7.7); NEUTROPHILS % (AUTO) 84.7 % (42-75); PLATELET COUNT 387 X10'3 (140-440); RED BLOOD COUNT 3.18 X10'6 (4.20-5.60); RED CELL DISTRIBUTION WIDTH 16.4 % (11.5-14.5); WHITE BLOOD COUNT 12.2 X10'3 (4.5-11.0)
--- NOTE | 2021-04-02 07:12 | NUR ---
Received patient report from Saba MUNOZ patients. Patient resting on back complaining of bilateral shoulder pain.
[2021-04-02 07:24] LABS: ALBUMIN 2.3 G/DL (3.4-5.0); ALBUMIN/GLOBULIN RATIO 0.8 (1.1-1.5); ALKALINE PHOSPHATASE 95 IU/L (46-116); ANION GAP 10 (8-16); ASPARTATE AMINO TRANSFERASE 19 U/L (10-37); BILIRUBIN,TOTAL 0.5 MG/DL (0.1-1.0); BLOOD UREA NITROGEN 29 MG/DL (7-18); BUN/CREATININE RATIO 8.7 (6.6-38.0); CALCIUM 8.1 MG/DL (8.5-10.1); CHLORIDE 107 MMOL/L (99-107); CREATININE 3.33 MG/DL (0.40-0.90); GLUCOSE 75 MG/DL (70-104); MAGNESIUM 2.3 MG/DL (1.5-2.4); POTASSIUM 3.9 MMOL/L (3.5-5.1); SODIUM 142 MMOL/L (135-145); TOTAL CARBON DIOXIDE 25.4 MMOL/L (24-32); TOTAL PROTEIN 5.3 G/DL (6.4-8.2); eGFR 14 ML/MIN
[2021-04-02 07:27] LABS: ALANINE AMINOTRANSFERASE < 6 U/L (12-78)
--- NOTE | 2021-04-02 07:43 | NUR ---
Paged PICC rn to get IV in patient. Patients IV is leaking, I redressed IV and it is still leaking.
--- NOTE | 2021-04-02 07:45 | NUR ---
Roxie circuit manager states they will come start dialysis around 9am
--- NOTE | 2021-04-02 07:56 | NUR ---
PAGER ID: [phone] MESSAGE: Jeannie PCGuerline [phone] Re: Black please call re: gunjan IV Pt BP 203/107 HR 75 Addendum: 04/02/21 at 0822 by Jeannie Medina RN Received orders to give patient Clonidine .1mg PO TID, Dr aware of patient BP and her home medications have not been given. Also , Received orders for a one time Tramadol dose due to no IV access.
[2021-04-02] MEDS: pantoprazole 40 MG vial IV SCH (08:00)
[2021-04-02] MEDS: K and/or MAG REPLACEMENT MC SCH ×2 (08:00→20:00)
[2021-04-02] MEDS ORDERED: cloNIDine 0.1 mg tablet PO SCH (08:20)
[2021-04-02] MEDS ORDERED: traMADol 50MG tablet PO ONE (08:20)
[2021-04-02] MEDS: heparin, porcine 5000 units/ml vial SQ SCH ×2 (09:30→20:08)
[2021-04-02] MEDS: LORazepam 0.5 MG tablet PO PRN ×3 (09:47→20:04)
--- NOTE | 2021-04-02 09:49 | NUR ---
Dr Keys aware patient states " I don't need dialysis today, I have not been eating or drinking. I want to talk to this Dr Keys" Per Dr Keys no IV except for hand and ok to change patients Ativan to PO.
[2021-04-02] MEDS ORDERED: normal saline 1000ml 250 ML IV PRN (10:10)
[2021-04-02] MEDS ORDERED: EPOETIN ALFA-EPBX 20,000 UNIT/ML 1 ML MDV IV ONE (10:10)
[2021-04-02] MEDS ORDERED: heparin 1,000unit/ml 10ml vial 10 ML IV ONE (10:10)
[2021-04-02] MEDS ORDERED: heparin 1,000 units/ml 10ml inj HE ONE ×2 (10:15)
--- NOTE | 2021-04-02 11:13 | NUR ---
Left message for Dr Bergman to call back regarding his patient.
--- NOTE | 2021-04-02 12:20 | NUR ---
PAGER ID: [phone] MESSAGE: Jeannie-Surg [phone] Re: Black [id number] Please call patients BP is still high after Clonidine current BP is 192/104 HR 84
[2021-04-02] MEDS: amLODIPine 2.5mg tablet PO SCH (13:12)
[2021-04-02] MEDS: metoprolol succinate 25mg (24-HOUR) SR. Tablet PO SCH (13:13)
[2021-04-02] MEDS: furosemide 40mg tablet PO SCH ×2 (14:27→20:00)
[2021-04-02] MEDS: lisinopril 20mg tablet PO SCH ×2 (14:27→20:04)
--- NOTE | 2021-04-02 14:55 | NUR ---
I removed the patient's 20 gauge IV catheter from her left AC because it was leaking. The cannula was intact but was kinked. I asked the patient if we could place a new IV catheter. She refuses to have a catheter placed in her hand. She refuses a PICC line. I asked her where she would be agreeable to having an IV catheter placed and she stated that she would accept one in her forearm. I explained that she cannot have an IVC placed in her forearm due to her dialysis needs.
--- NOTE | 2021-04-02 14:57 | NUR ---
PAGER ID: [phone] MESSAGE: Michael [phone] Re: Black [id number] Patient refusing IV please call has fluids ordered. Addendum: 04/02/21 at 1500 by Jeannie Medina RN Paged incorrect doctor correct doctor is calling in on another patient will advise.
--- NOTE | 2021-04-02 15:05 | NUR ---
Spoke to Dr Blanchard regarding patient is refusing to let us start a new IV old IV was leaking and was unable to save IV. Patient has been refusing an IV stick all day and Per Dr Keys you can only start IV in patients hands. Patient again refused. Patient has IV fluids D5 NS ordered at 100 and has only had 50 ml's out of bladder. Per Dr Blanchard ok to DC IV fluids and push PO intake. Advised Dr Blanchard that patient just wants us to leave her alone.
--- NOTE | 2021-04-02 17:16 | NUR ---
Initial: Pt admit for SBO with cecal mass, s/p open ex lab, Clara, and right hemicolectomy 03/30. Pt initially NPO with an NG tube in place however NG tube removed and pt was advanced to clear liquids today, documented with average 75% PO intake. Diet has just been advanced to full liquids, to begin at dinner tonight. Recommend diet advancement to renal as medically indicated given ESRD on HD. LB 03/26. Will continue to follow closely. Recommendations: 1) Advance to low fiber/renal diet as medically indicated 2) Monitor need for additional protein 3) Bowel care per MD 4) Scaled weights per rx Addendum: 04/02/21 at [address] Amended: Links added.
[2021-04-02] MEDS: oxyCODONE/APAP 5-325mg tablet PO PRN (17:32)
--- NOTE | 2021-04-02 17:34 | NUR ---
Went in to patients room to see what she needed due to call light being on. Patient was very anxious and tearful. Patient was trying to get out of bed to go to the restroom and another RN was in there but was not sure how she gets out of bed. As I walked into room patients was getting very agitated and aggressive with other RN. The other RN was telling patient let me go get your nurse to help you. Patient was assisted to the Bedside commode but was aggressively pulling off her Tele monitor. Patient stated " I just wish I would . " I asked patient why she would say that and she said that she is just tired of it all" I asked patient if she was going to harm herself or if she had any plan to do so and patient denied any plan of hurting herself. I advised patient her blood pressure has been very high and she needs to keep the Tele monitor in place. Patient states" I have been told that numerous times today and you know what now my Blood pressure will go up. " Patient was assisted from the bedside commode to the high back chair for dinner and her tray was set up call light in place and in reach. Patient was provided with a warm blanket wrapped around her shoulders. Will continue to monitor patient and assist with her needs. Social Service consult put in on patient for depression and anxiety.
--- NOTE | 2021-04-02 18:39 | NUR ---
Problems reprioritized. Patient report given, questions answered & plan of care reviewed with Christine King RN.
--- NOTE | 2021-04-02 18:40 | NUR ---
Patient in room PCU 3016. I have received report from GABY MUNOZ and had the opportunity to ask questions and assume patient care.
[2021-04-02] MEDS: cloNIDine 0.1 mg tablet PO SCH (20:02)
[2021-04-03] VITALS (7 sets, daily range): BP systolic 141–203; BP diastolic 72–107
[2021-04-03] MEDS: oxyCODONE/APAP 5-325mg tablet PO PRN ×4 (03:13→20:16)
--- NOTE | 2021-04-03 06:29 | NUR ---
Problems reprioritized. Patient report given, questions answered & plan of care reviewed with PRETTY MUNOZ.
--- NOTE | 2021-04-03 07:05 | NUR ---
PAGER ID: [phone] MESSAGE: [id number] Jeannie Cleaning- Refusing IV - unable to given IV Levaquin. Refused morning lab draws. Judy [phone]
[2021-04-03] MEDS ORDERED: levoFLOXACIN-Levaquin 250mg/D5 50 ML IV SCH (08:00)
[2021-04-03] MEDS: K and/or MAG REPLACEMENT MC SCH ×2 (08:00→20:00)
--- NOTE | 2021-04-03 08:03 | NUR ---
PAGER ID: [phone] MESSAGE: [id number] Black- No BM since prior to admit. C/O constipation. No orders for medication. Judy [phone]
[2021-04-03] MEDS ORDERED: bisacodyl 10mg suppository rectal RC PRN (08:55)
[2021-04-03] MEDS ORDERED: docusate sod 100mg capsule PO ONE (09:00)
[2021-04-03] MEDS ORDERED: levoFLOXACIN 250mg tablet PO SCH (09:20)
[2021-04-03] MEDS: metoprolol succinate 25mg (24-HOUR) SR. Tablet PO SCH (09:45)
[2021-04-03] MEDS: furosemide 40mg tablet PO SCH ×3 (09:46→20:11)
[2021-04-03] MEDS: cloNIDine 0.1 mg tablet PO SCH ×2 (09:47→20:07)
[2021-04-03] MEDS: amLODIPine 2.5mg tablet PO SCH (09:48)
[2021-04-03] MEDS: heparin, porcine 5000 units/ml vial SQ SCH ×2 (09:49→20:14)
[2021-04-03] MEDS: lisinopril 20mg tablet PO SCH ×2 (09:49→20:07)
[2021-04-03] MEDS: hydrALAZINE 25 MG tablet PO SCH ×3 (09:52→20:14)
--- NOTE | 2021-04-03 11:20 | NUR ---
PAGER ID: [phone] MESSAGE: [id number] Jeannie Cleaning- The son, Silvino, request to talk to you. [phone]. Judy [phone]
--- NOTE | 2021-04-03 11:44 | NUR ---
PAGER ID: [phone] MESSAGE: [id number] Jeannie Cleaning- 190/93, HR 74. Judy [phone]
[2021-04-03] MEDS: sertraline 50mg tablet PO SCH (12:48)
[2021-04-03] MEDS: pantoprazole 40mg Tablet.DR PO SCH (12:48)
--- NOTE | 2021-04-03 15:00 | NUR ---
Patient had a shower. Tolerated well. Clean linens and gown applied.
--- NOTE | 2021-04-03 18:50 | NUR ---
Received report from Judy MUNOZ
--- NOTE | 2021-04-03 19:54 | NUR ---
Patient c/o nausea. New order for zofran SL obtained.
[2021-04-03] MEDS ORDERED: docusate sod 100mg capsule PO SCH (20:00)
[2021-04-03] MEDS: ondansetron 4mg rapidly disintigrating tab PO PRN (20:03)
[2021-04-04] MEDS: oxyCODONE/APAP 5-325mg tablet PO PRN ×4 (00:19→23:52)
[2021-04-04 02:00] VITALS: BP 155/82
[2021-04-04 06:00] VITALS: BP 193/98
--- NOTE | 2021-04-04 06:45 | NUR ---
Patient report given to Jose MUNOZ
[2021-04-04] MEDS: K and/or MAG REPLACEMENT MC SCH ×2 (08:00→20:00)
[2021-04-04] MEDS: ondansetron 4mg rapidly disintigrating tab PO PRN ×2 (08:14→19:32)
[2021-04-04] MEDS: sertraline 50mg tablet PO SCH (08:15)
[2021-04-04] MEDS: pantoprazole 40mg Tablet.DR PO SCH (08:15)
[2021-04-04] MEDS: furosemide 40mg tablet PO SCH (08:15)
[2021-04-04] MEDS: metoprolol succinate 25mg (24-HOUR) SR. Tablet PO SCH (08:16)
[2021-04-04] MEDS: lisinopril 20mg tablet PO SCH ×2 (08:16→21:57)
[2021-04-04] MEDS: amLODIPine 2.5mg tablet PO SCH (08:16)
[2021-04-04] MEDS: cloNIDine 0.1 mg tablet PO SCH ×2 (08:16→21:58)
[2021-04-04] MEDS: hydrALAZINE 25 MG tablet PO SCH ×3 (08:16→21:58)
[2021-04-04] MEDS: heparin, porcine 5000 units/ml vial SQ SCH ×2 (08:31→21:59)
[2021-04-04 11:26] VITALS: BP 167/82
--- NOTE | 2021-04-04 18:20 | NUR ---
Problems reprioritized. Patient report given, questions answered & plan of care reviewed with Efra MUNOZ.
[2021-04-04 18:50] VITALS: BP 117/85
[2021-04-04 22:00] VITALS: BP 194/92
[2021-04-04] MEDS ORDERED: furosemide 20MG tablet PO ONE (22:30)
[2021-04-05 02:00] VITALS: BP 164/83
[2021-04-05] MEDS: oxyCODONE/APAP 5-325mg tablet PO PRN ×2 (04:42→11:43)
[2021-04-05 06:00] VITALS: BP 191/86
--- NOTE | 2021-04-05 07:14 | NUR ---
Problems reprioritized. Patient report given, questions answered & plan of care reviewed with DAY RN. Addendum: 04/05/21 at 0714 by Fred Murray RN Amended: Links added.
[2021-04-05] MEDS: metoprolol succinate 25mg (24-HOUR) SR. Tablet PO SCH (07:45)
[2021-04-05] MEDS: pantoprazole 40mg Tablet.DR PO SCH (07:46)
[2021-04-05] MEDS: cloNIDine 0.1 mg tablet PO SCH (07:46)
[2021-04-05] MEDS: amLODIPine 2.5mg tablet PO SCH (07:46)
[2021-04-05] MEDS: furosemide 40mg tablet PO SCH (07:47)
[2021-04-05] MEDS: lisinopril 20mg tablet PO SCH (07:47)
[2021-04-05] MEDS: sertraline 50mg tablet PO SCH (07:47)
[2021-04-05] MEDS: heparin, porcine 5000 units/ml vial SQ SCH (07:48)
[2021-04-05] MEDS ORDERED: albumin (human) 25% 100ml IV 100 ML IV PRN (08:00)
[2021-04-05] MEDS: K and/or MAG REPLACEMENT MC SCH (08:00)
[2021-04-05] MEDS ORDERED: EPOETIN ALFA-EPBX 20,000 UNIT/ML 1 ML MDV IV ONE (08:00)
[2021-04-05] MEDS ORDERED: heparin 1,000unit/ml 10ml vial 10 ML IV ONE (10:15)
[2021-04-05] MEDS ORDERED: heparin 1,000 units/ml 10ml inj HE ONE ×2 (10:20)
[2021-04-05 11:00] VITALS: BP 160/88
--- NOTE | 2021-04-05 14:21 | NUR ---
PAGER ID: [phone] MESSAGE: DEIDRA ON [email or web address], [phone] GABY SEAGL NEEDS PAIN MEDS FOR HER MID LINE INCISION. HAS BEEN TAKING PERCOSET 5-325 HERE. HER RIDE IS HERE CAN YOU CALL ME VICKY TO ADDRESS. THX
--- NOTE | 2021-04-05 14:58 | NUR ---
PT IS STABLE FOR DISCHARGE PER MD ORDERS. ALL DISCHARGE INSTRUCTIONS REVIEWED WITH PATIENT AND ALL QUESTIONS ANSWERED. PT WILL MAKE OWN FOLLOW UP APPOINTMENT WITH PCP AND SURGEON. NEW RX PHONED IN TO [facility] IN [place] BY DR. FERNANDEZ'S OFFICE. PT'S MEDICATIONS RETRIEVED FROM HOSPITAL PHARMACY. MANUFACTURING MAINTENANCE MANAGER DISCONTINUED. ALL BELONGINGS COLLECTED AND SENT WITH PATIENT. PT WAS WHEELED TO FRONT OF LOBBY WHERE PRIVATE VEHICLE WAS WAITING.
== END 2021-04-05 14:58 | disposition home or self-care (01) | DRG 329 ==
LOC: UNDOADMIN 19:22 → PCU 3S 19:22
PROVIDERS: ADMIT Family Medicine; ATTEND Family Medicine
PROC: 5A1D70Z Performance of Urinary Filtration, Intermittent, Less than 6 Hours Per Day (ICD-10-PCS; 2021-03-29)
PROC: 0DTF0ZZ Resection of Right Large Intestine, Open Approach (ICD-10-PCS; principal; 2021-03-30 13:40)
PROC: 5A1D70Z Performance of Urinary Filtration, Intermittent, Less than 6 Hours Per Day (ICD-10-PCS; 2021-03-31)
PROC: 5A1D70Z Performance of Urinary Filtration, Intermittent, Less than 6 Hours Per Day (ICD-10-PCS; 2021-04-02)
PROC: 5A1D70Z Performance of Urinary Filtration, Intermittent, Less than 6 Hours Per Day (ICD-10-PCS; 2021-04-05)
DX: C18.0 Malignant neoplasm of cecum (principal); I21.A1 Myocardial infarction type 2; N18.6 End stage renal disease; I50.33 Acute on chronic diastolic (congestive) heart failure; C77.2 Secondary and unspecified malignant neoplasm of intra-abdominal lymph nodes; K56.600 Partial intestinal obstruction, unspecified as to cause; N39.0 Urinary tract infection, site not specified; I13.2 Hypertensive heart and chronic kidney disease with heart failure and with stage 5 chronic kidney disease, or end stage renal disease; L03.311 Cellulitis of abdominal wall; L02.211 Cutaneous abscess of abdominal wall; N26.1 Atrophy of kidney (terminal); Z20.822 Contact with and (suspected) exposure to COVID-19; E78.5 Hyperlipidemia, unspecified; E87.6 Hypokalemia; I25.10 Atherosclerotic heart disease of native coronary artery without angina pectoris; K21.9 Gastro-esophageal reflux disease without esophagitis; Z86.73 Personal history of transient ischemic attack (TIA), and cerebral infarction without residual deficits; Z91.15 Patient's noncompliance with renal dialysis; Z99.2 Dependence on renal dialysis; I25.2 Old myocardial infarction; Z88.0 Allergy status to penicillin; Z88.2 Allergy status to sulfonamides; Z88.8 Allergy status to other drugs, medicaments and biological substances; Z79.899 Other long term (current) drug therapy
CPT/HCPCS: 36415; 71045; 74018; 80053; 82378; 82550; 82948; 83605; 83735; 83880; 84100; 84443; 84484; 85007; 85025; 85610; 85730; 87040; 87077; 87081; 87185; 87340; 87635; 88309; 93005; 93306; 97110; 97116; 97162; A4215; A4618; A7000; C1758; C9113; C9290; C9399; G0257; G0378; J0360; J1100; J1170; J1644; J1956; J2001; J2060; J2250; J2405; J3010; J3480; J3490; J7030; J7042; J7120; P9045; Q4081